=== PATIENT | male | born 1980 | race Caucasian/White ===

== ENCOUNTER 2017-05-22 04:33 | Emergency (ER) | payer BC ==
[2017-05-22 04:50] VITALS: RESP 18
--- NOTE | 2017-05-22 04:58 | ED ---
General Adult HPI - General Chief complaint: Extremity Injury, Upper Stated complaint: Wrist/Forearm Pain Time Seen by Provider: 05/22/17 04:35 Source: patient, RN notes reviewed Mode of arrival: ambulatory Limitations: no limitations - History of Present Illness Initial comments: This is a 36-year-old male comes emergency arm in complaining that an hour and a half prior to arrival he woke up with some mid right forearm pain. Patient states she was not laying on it any different than normal he was not sleeping in a different area. He woke up and it was above the wrist and extending for about 6 inches that was the only area of pain. Patient states is no redness there is no swelling there is been no trauma recently. Patient states she's been recently seen for some shoulder pain and he was supposed to get an MRI on Tuesday to rule out rotator cuff damage. Patient is currently on prednisone mobile and tramadol. Patient denies any other problems at this time. Patient is not currently complaining of any shoulder pain or neck pain patient denies any numbness or weakness - Related Data Allergies Allergy/AdvReac Type Severity Reaction Status Date / Time No Known Allergies Allergy Verified 05/22/17 04:50 Review of Systems ROS Statement: Those systems with pertinent positive or pertinent negative responses have been documented in the HPI. ROS Other: All systems not noted in ROS Statement are negative. Past Medical History Past Medical History: Thyroid Disorder History of Any Multi-Drug Resistant Organisms: None Reported Past Surgical History: Orthopedic Surgery Past Psychological History: No Psychological Hx Reported Smoking Status: Current every day smoker Past Alcohol Use History: None Reported Past Drug Use History: None Reported General Exam - General Exam Comments Initial Comments: GGENERAL Patient is well-developed and well-nourished. Patient is in mild distress. EYES Patient's pupils are equal and round. Extraocular motion is intact SKIN Unremarkable NEURO The patient is alert and oriented 3 PYSCH Patient has normal interpersonal interactions. MUSCULOSKELETAL Patient's right forearm is not tender the wrist is nontender there is no redness to the swelling and he has full range of motion and full strength of the wrist and hand and arm. Limitations: no limitations Course Vital Signs 05/22/17 04:44 Temperature 97.6 F Pulse Rate 63 Respiratory 18 Rate Blood Pressure 102/82 O2 Sat by Pulse 100 Oximetry Medical Decision Making - Medical Decision Making X-rays of the cervical spine showed no acute abnormality. X-rays of the forearm showed no acute abnormality. Disposition Clinical Impression: Forearm pain Disposition: HOME SELF-CARE Instructions: Arm Pain (ED) Referrals: Mendoza Michele DO [Primary Care Provider] - 1-2 days Time of Disposition: 06:45
[2017-05-22] MEDS ORDERED: KETOROLAC 60 MG/2 ML VIAL IM STA (04:59)
--- NOTE | 2017-05-22 05:57 | XR ---
EXAM: XR Cervical Spine, 2 or 3 Views CLINICAL HISTORY: ITS.REASON XR Reason: Pain TECHNIQUE: Frontal and lateral views of the cervical spine. COMPARISON: None. FINDINGS: Vertebrae: Mild straightening of the normal cervical lordosis is likely positional or related to spasm. No definite fracture. Normal alignment. Disc spaces: No acute findings. No significant narrowing. Soft tissues: Unremarkable. IMPRESSION: No radiographic evidence of cervical spine fracture.
--- NOTE | 2017-05-22 05:58 | XR ---
EXAM: XR Right Forearm, 2 Views CLINICAL HISTORY: ITS.REASON XR Reason: Pain TECHNIQUE: Frontal and lateral views of the right forearm. COMPARISON: None. FINDINGS: Bones/joints: Unremarkable. No acute fracture. No dislocation. Soft tissues: Unremarkable. IMPRESSION: Normal right forearm x-rays.
[2017-05-22 06:55] VITALS: BP 113/76; PULSE 65; TEMP 97.8
== END 2017-05-22 06:54 | disposition home or self-care (01) ==
LOC: EC 04:33 → SUPCPDRO 04:33 → EC 06:54
DX: M79.631 Pain in right forearm (principal); F17.200 Nicotine dependence, unspecified, uncomplicated
CPT/HCPCS: 99283; 96372; 72040; 73090; J1885